=== PATIENT | male | born 1995 | race Caucasian/White ===

== ENCOUNTER 2022-02-08 01:52 | Emergency (ER) | payer OTHER ==
[~2022-02-08] VITALS: Ht 185.4 cm; Wt 117.9 kg
[2022-02-08 01:58] VITALS: BP 202/98
[2022-02-08] MEDS ORDERED: IBUP-2213 PO (03:54)
[2022-02-08] MEDS ORDERED: CEPH500T PO (03:54)
[2022-02-08] MEDS ORDERED: SULF-59 PO (03:54)
[2022-02-08] MEDS ORDERED: IBUPROFEN 800 MG TAB PO ONE (03:55)
[2022-02-08] MEDS ORDERED: SULFAMETH/TRIMETH DS 800/160MG 1 TAB PO ONE (03:55)
[2022-02-08] MEDS ORDERED: AMOXICILLIN 500 MG CAP PO ONE (03:55)
== END 2022-02-08 04:15 | disposition home or self-care (01) ==
LOC: MED 01:52
DX: L03.116 Cellulitis of left lower limb (principal); L03.115 Cellulitis of right lower limb; Z79.899 Other long term (current) drug therapy
CPT/HCPCS: 99284

== ENCOUNTER 2022-02-09 15:41 | Emergency (ER) | payer OTHER ==
[~2022-02-09] VITALS: Ht 185.4 cm; Wt 120.2 kg
[~2022-02-09 15:41] MED LIST: CEPH500T PO; IBUP-2213 PO; SULF-59 PO
[2022-02-09 16:00] VITALS: BP 160/94
[2022-02-09] MEDS ORDERED: BACITRACIN OINT 500 UNITS/GM PKT TP ONE (17:00)
[2022-02-09 17:28] VITALS: BP 160/94
== END 2022-02-09 17:28 | disposition home or self-care (01) ==
LOC: MED 15:41
DX: L03.115 Cellulitis of right lower limb (principal); Z79.899 Other long term (current) drug therapy
CPT/HCPCS: 99282

== ENCOUNTER 2022-02-11 19:00 | Emergency (ER) | payer OTHER ==
[~2022-02-11] VITALS: Ht 185.4 cm; Wt 120.2 kg
[2022-02-11 19:44] VITALS: BP 169/81
--- NOTE | 2022-02-11 19:51 | NUR ---
TO LOBBY FOLLOWING TRIAGE
--- NOTE | 2022-02-11 20:40 | NUR ---
Patient ambulated to BED 12 with steady gait.
--- NOTE | 2022-02-11 20:40 | NUR ---
Patient bib self for c/o possible infected bug bite. patient states started antibiotics x a few days ago. Patient states concerned that wound is getting worse. Patient afebrile. Per patient wound is same in size, purluent drainage noted.
[2022-02-11] MEDS ORDERED: oxyCODONE/APAP 5/325 MG 1 TAB TAB PO ONE (20:45)
[2022-02-11] MEDS ORDERED: LIDOCAINE/EPI MPF 2%1:200000 10 ML VIAL INJ ONE (20:45)
[2022-02-11] MEDS ORDERED: LIDOCAINE/EPI 1% 1:100000 20 ML VIAL INJ ONE (21:00)
--- NOTE | 2022-02-11 21:50 | NUR ---
Patient given pain rx as prescribed. Current pain 7/10 on r upper thigh, at site of bug bite.
[2022-02-11] MEDS ORDERED: SULF-59 PO (23:07)
[2022-02-11] MEDS ORDERED: CEPH-588 PO (23:07)
[2022-02-11] MEDS ORDERED: SULFAMETH/TRIMETH DS 800/160MG 1 TAB PO ONE (23:15)
[2022-02-11] MEDS ORDERED: cephALEXin 500 MG CAP PO ONE (23:15)
--- NOTE | 2022-02-11 23:50 | NUR ---
Patient is currently ambulatory with steady gait, able to walk unassisted. Positive gag reflex. Alert and oriented. Is not driving self for discharge out of facility. NADR from [facility].
[2022-02-11 23:53] VITALS: BP 143/85
--- NOTE | 2022-02-11 23:53 | NUR ---
Patient discharged with v/s stable. Written and verbal after care instructions given and explained. Patient alert, oriented and verbalized understanding of instructions. Ambulatory with steady gait. All questions addressed prior to discharge. ID band removed. Patient advised to follow up with PMD. Rx of KEFLEX, BACTRIM given. Patient educated on indication of medication including possible reaction and side effects. Opportunity to ask questions provided and answered.
== END 2022-02-11 23:53 | disposition home or self-care (01) ==
LOC: MED 19:00
DX: L02.415 Cutaneous abscess of right lower limb (principal); L03.115 Cellulitis of right lower limb; I10 Essential (primary) hypertension; Z79.2 Long term (current) use of antibiotics; Z79.1 Long term (current) use of non-steroidal anti-inflammatories (NSAID)
CPT/HCPCS: 10060; 99284; J2001

== ENCOUNTER 2022-05-14 02:30 | Emergency (ER) | payer OTHER ==
[~2022-05-14] VITALS: Ht 185.4 cm; Wt 127.0 kg
[~2022-05-14 02:30] MED LIST changes: +CEPH-588 PO
[2022-05-14 02:40] VITALS: BP 152/90
--- NOTE | 2022-05-14 02:40 | NUR ---
seen and examined by ERMD in triage room
--- NOTE | 2022-05-14 02:43 | NUR ---
to lobby a/w bed ambulatory
[2022-05-14] MEDS ORDERED: CEPH-588 PO (02:53)
[2022-05-14] MEDS ORDERED: LIDOCAINE MPF 1% 10 MG/ML VIAL INJ ONE (02:55)
--- NOTE | 2022-05-14 03:53 | NUR ---
per ermd draw out 100mg more of lidocaine order. lidocaine x2 vials of 50mg handed to ermd.
[2022-05-14] MEDS ORDERED: SULF-59 PO (04:17)
== END 2022-05-14 05:17 | disposition home or self-care (01) ==
LOC: MED 02:30
DX: S91.201A Unspecified open wound of right great toe with damage to nail, initial encounter (principal); I10 Essential (primary) hypertension; Z79.899 Other long term (current) drug therapy; W20.8XXA Other cause of strike by thrown, projected or falling object, initial encounter; Y93.89 Activity, other specified; Y92.89 Other specified places as the place of occurrence of the external cause; Y99.8 Other external cause status
CPT/HCPCS: 11730; 90471; 90715; 99284; J2001; 99283